=== PATIENT | male | born 1980 | race Asian ===

== ENCOUNTER 2017-07-25 10:32 | Emergency (ER) | payer OTHER ==
[~2017-07-25] VITALS: Ht 167.6 cm; Wt 84.0 kg
[2017-07-25 10:35] VITALS: BP 152/77; PULSE 84; RESP 16; TEMP 98.4; O2SAT 98
[2017-07-25] MEDS ORDERED: LIDOCAINE HCL 1% 50 ML VIAL INFIL ONE (11:00)
[2017-07-25] MEDS ORDERED: TETANUS/DIPHTHERIA TOXOID ADULT 0.5 ML VIAL IM ONE (11:00)
[2017-07-25] MEDS ORDERED: IBUP800T23 PO (11:23)
[2017-07-25] MEDS ORDERED: CEPH-460 PO (11:23)
--- NOTE | 2017-07-25 11:24 | PD ---
HPI Chief Complaint: Laceration/Skin Injury Time Seen by Provider: 10:56 Travel History International Travel<30 days: No Contact w/Intl Traveler<30days: No Traveled to known affect area: No History of Present Illness HPI Patient is a 36-year-old male presenting to emergency for evaluation of a laceration to his right forearm. Patient was cutting plastic off of a pallet when the sweat box attendant slipped cutting his arm. He reports the pain is a 3 out of 10 and describes it as throbbing. He is uncertain when his last tetanus vaccine was. He denies any numbness, tingling, weakness in his hand or arm. He has no other complaints at this time. He denies any significant past medical history. [facility] Past Medical History Medical History: Denies Significant Hx Tetanus Vaccination: Unknown Social History Alcohol Use: No Tobacco Use: No Substance Use: No Allergies-Medications (Allergen,Severity, Reaction): Coded Allergies: No Known Allergies (Unverified , 07/25/17) Review of Systems Except as stated in HPI: all other systems reviewed are Neg Skin: Positive Other (laceration) Physical Exam Narrative GENERAL: Well-developed, well-nourished, alert male. Resting comfortably in no acute distress. SKIN: Warm and dry. 3 cm laceration to the posterior aspect of the left forearm. Base of wound is well visualized, there is no tendon injury or foreign body appreciated. HEAD: Normocephalic. EYES: No scleral icterus. No injection or drainage. NECK: Supple, trachea midline. No JVD or lymphadenopathy. CARDIOVASCULAR: Regular rate and rhythm without murmurs, gallops, or rubs. RESPIRATORY: Breath sounds equal bilaterally. No accessory muscle use. GASTROINTESTINAL: Abdomen soft, non-tender, nondistended. MUSCULOSKELETAL: No cyanosis, or edema. BACK: Nontender without obvious deformity. No CVA tenderness. Data Data Last Documented VS Vital Signs Date Time Temp Pulse Resp B/P (MAP) Pulse Ox O2 Delivery O2 Flow Rate FiO2 07/25/17 10:35 98.4 84 16 152/77 (102) 98 Orders Orders Tetanus/Diphtheria Tox Adult (Tetanus/Di (07/25/17 11:00) Lidocaine 1% Inj (50 Ml) (Xylocaine 1% I (07/25/17 11:00) MDM Medical Decision Making Medical Screen Exam Complete: Yes Emergency Medical Condition: Yes Interpretation(s) Vital Signs Date Time Temp Pulse Resp B/P (MAP) Pulse Ox O2 Delivery O2 Flow Rate FiO2 07/25/17 10:35 98.4 84 16 152/77 (102) 98 Differential Diagnosis Laceration versus abrasion versus puncture wound versus tendon injury versus other Narrative Course Patient is a 36-year-old male presenting to a laceration that he sustained while working. Please see procedure for for laceration repair. Patient tolerated well, he is neurovascularly intact and has full range of motion in his left hand and fingers. Patient was educated on the signs and symptoms of infection. He will be placed on Keflex prophylactically, his tetanus vaccine was updated in the emergency department. He was encouraged to return immediately for any sign or symptom of infection any new or worsening symptoms. He verbalized understanding of these instructions. Patient is stable for discharge. Procedures Procedure Narrative LACERATION LOCATION: Left posterior forearm LENGTH: 3 cm NUMBER OF STITCHES/MELIA: 7 Melia REPAIR: The area of the laceration was prepped with Betadine and sterilely draped. The laceration was infiltrated with 1% lidocaine. The wound was copiously irrigated and explored without evidence of foreign body, tendon injury or neurovascular injury. The wound was closed using melia. This was a 1 layer repair. A sterile dressing was applied. The patient was advised to keep the dressing clean and dry. Patient tolerated the procedure well. Diagnosis Primary Impression: Laceration of forearm Qualified Codes: S51.812A - Laceration without foreign body of left forearm, initial encounter Referrals: Primary Care Physician 1 week Patient Instructions: General Instructions, Laceration (ED), Staple Care (ED) Additional Instructions: [place] will need to be removed in 10 days Complete full course of antibiotics as prescribed Melia may be kept open to air Return to emergency department for any new or worsening symptoms as discussed Med/Other Pt SpecificInfo: Prescription(s) given Scripts Cephalexin (Keflex) 500 Mg Cap 500 MG PO Q12H for Infection, #10 CAP 0 Refills Prov: Lidia Mendoza 07/25/17 Ibuprofen (Ibuprofen) 800 Mg Tab 800 MG PO Q6HR Y for PAIN, #40 TAB 0 Refills Prov: Lidia Mendoza 07/25/17 Disposition: 01 DISCHARGE HOME Condition: Stable Lidia Mendoza CHAIR [facility] Jul 25, 2017 11:24
== END 2017-07-25 11:42 | disposition home or self-care (01) ==
LOC: NEPK 10:32
DX: S51.811A Laceration without foreign body of right forearm, initial encounter (principal); W26.8XXA Contact with other sharp object(s), not elsewhere classified, initial encounter; Y93.89 Activity, other specified; Z23 Encounter for immunization
CPT/HCPCS: 12002; 90471; 90714; 96372